=== PATIENT | female | born 1980 | race Caucasian/White ===

== ENCOUNTER → 2017-05-29 | Outpatient (CLI) | payer BC ==
--- NOTE | 2017-05-29 14:15 | RADIOLOGY REPORT (SQ) ---
EXAM DESCRIPTION: HIP RIGHT AP/LATERAL COMPLETED DATE/TIME: 05/29/2017 1:51 pm REASON FOR STUDY: RIGHT HIP PAIN M25.551 PAIN IN RIGHT HIP COMPARISON: None. NUMBER OF VIEWS: Two views. TECHNIQUE: AP pelvis and additional frog-leg view of the right hip. LIMITATIONS: None. FINDINGS: MINERALIZATION: Normal. RIGHT HIP: No fracture or dislocation. No joint space narrowing. Very mild right acetabular rim bon y spurring. LEFT HIP: No fracture or dislocation. No joint space narrowing or acetabular bony spurring. PUBIS AND ISCHIUM: No fracture. PELVIS: No fracture. SACRUM: No fracture or dislocation. No worrisome bone lesions. LOWER LUMBAR SPINE: No fracture or dislocation. No worrisome bone lesions. No significant disc disea se. SOFT TISSUES: No findings. OTHER: No other significant finding. IMPRESSION: No acute fracture. Very mild acetabular rim bony spurring TECHNICAL DOCUMENTATION: JOB ID: [id number] [employer]- All Rights Reserved
== END ==
LOC: OD 13:31
PROVIDERS: ATTEND Nurse Practitioner Acute Care
DX: M25.551 Pain in right hip (principal)

== ENCOUNTER 2018-04-07 19:02 | Emergency (ER) | payer BC ==
--- NOTE | 2018-04-07 19:29 | ER Document Report ---
ED Medical Screen (RME) - General Chief Complaint: Bruising and toenails falling off Stated Complaint: BRUISING Time Seen by Provider: 04/07/18 19:20 Mode of Arrival: Ambulatory Information source: Patient TRAVEL OUTSIDE OF THE [place] IN LAST 30 DAYS: No - HPI Patient complains to provider of: Bruising Onset: Other - This is a woman with a complex past medical history which is difficult to ascertain despite an extended period of time while listening to the patient, she is [place] undiagnosed autoimmune disease for which she has been evaluated as of times by multiple neurologists without any obvious cause being identified her major concern is that she is noted to have more easy bruising over the last several days. Her toenails, both baby toe nails, fell off also this week 1 of which was caught on a bedpost. Denies any other obvious bleeding, abdominal pain constipation diarrhea or dysuria. - Related Data Allergies/Adverse Reactions: No Known Allergies Allergy (Verified 11/08/13 16:20) Past Medical History Neurological Medical History: Reports: Hx Migraine Past Surgical History: Reports: Hx Section, Hx Tubal Ligation - Immunizations Hx Diphtheria, Pertussis, Tetanus Vaccination: No Physical Exam - Vital signs Vitals: Temp Pulse Resp BP Pulse Ox 98.2 F 122 H 16 124/86 H 99 04/07/18 19:09 04/07/18 19:09 04/07/18 19:09 04/07/18 19:09 04/07/18 19:09 Course - Re-evaluation Re-evalutation: 04/07/18 20:09 This 30-year-old female presents for concern of easy bruising. Because of the concern of easy bruising with scattered ecchymosis around will check coags as well as a CBC for platelet count. Do not believe the patient has any other obvious cause identified likely is been bumping herself incidentally or intentionally. Will defer further disposition determination and testing no secondary provider. - Vital Signs Vital signs: Temp Pulse Resp BP Pulse Ox 98.2 F 122 H 16 124/86 H 99 04/07/18 19:09 04/07/18 19:09 04/07/18 19:09 04/07/18 19:09 04/07/18 19:09 - Laboratory Result Diagrams: 04/07/18 14:36 04/07/18 14:36 Laboratory results interpreted by me: 04/07/18 14:36 Glucose 114 H Doctor's Discharge - Discharge Referrals: LUCIUS PADILLA PA-C [Primary Care Provider] - Follow up as needed
[2018-04-07 19:51] LABS: INTERNATIONAL RATION (INR) 0.91; PROTHROMBIN TIME 12.7 SEC (11.4-15.4)
--- NOTE | 2018-04-07 19:51 | ER Document Report ---
ED General - General Chief Complaint: Bruising and toenails falling off Stated Complaint: BRUISING Time Seen by Provider: 04/07/18 19:20 Notes: Patient is a 38-year-old female that comes emergency department for chief complaint of developing random bruises over her body which are nontraumatic, dry mouth, and also suddenly losing toenails on her fifth digits on both feet randomly without trauma. She denies fever or chills, shortness of breath, lightheadedness, or any other complaints at this time. She states she was told she might have an autoimmune disease because of previous abnormal labs, was sent to a electric engine mechanic but she states that they cleared her without doing any blood work. She has a history of neuropathy and is on gabapentin, migraines. She denies any surgeries. She denies any new medications. TRAVEL OUTSIDE OF THE [place] IN LAST 30 DAYS: No - Related Data Allergies/Adverse Reactions: No Known Allergies Allergy (Verified 11/08/13 16:20) Past Medical History - General Information source: Patient - Social History Smoking Status: Current Some Day Smoker Chew tobacco use (# tins/day): No Frequency of alcohol use: Occasional Drug Abuse: None Lives with: Family Family History: Reviewed & Not Pertinent Patient has suicidal ideation: No Patient has homicidal ideation: No Pulmonary Medical History: Reports: Hx Asthma - allery shuts down breathing Neurological Medical History: Reports: Hx Migraine Renal/ Medical History: Denies: Hx Peritoneal Dialysis Past Surgical History: Reports: Hx Breast Surgery - breast augmentation, Hx Section, Hx Tubal Ligation - Immunizations Hx Diphtheria, Pertussis, Tetanus Vaccination: Yes Review of Systems - Review of Systems Constitutional: No symptoms reported EENT: No symptoms reported Cardiovascular: No symptoms reported Respiratory: No symptoms reported Gastrointestinal: No symptoms reported Genitourinary: No symptoms reported Female Genitourinary: No symptoms reported Musculoskeletal: See HPI Skin: See HPI Hematologic/Lymphatic: No symptoms reported Neurological/Psychological: No symptoms reported Physical Exam - Vital signs Vitals: Temp Pulse Resp BP Pulse Ox 98.2 F 122 H 16 124/86 H 99 04/07/18 19:09 04/07/18 19:09 04/07/18 19:09 04/07/18 19:09 04/07/18 19:09 - Notes Notes: GENERAL: Alert, interacts well. No acute distress. HEAD: Normocephalic, atraumatic. EYES: Pupils equal, round, and reactive to light. Extraocular movements intact. ENT: Oral mucosa unremarkable, tongue midline. Normal oropharyngeal exam. NECK: Full range of motion. Supple. Trachea midline. LUNGS: Clear to auscultation bilaterally, no wheezes, rales, or rhonchi. No respiratory distress. HEART: Borderline tachycardia, normal rhythm, no murmur. ABDOMEN: Soft, non-tender. Non-distended. Bowel sounds present in all 4 quadrants. EXTREMITIES: Moves all 4 extremities spontaneously. No edema, normal radial and dorsalis pedis pulses bilaterally. No cyanosis. Toenails missing completely but with retained normal nail bed on both of the fifth digits of the feet. Unremarkable foot exam otherwise. BACK: no cervical, thoracic, lumbar midline tenderness. No saddle anesthesia, normal distal neurovascular exam. NEUROLOGICAL: Alert and oriented x3. Normal speech. [cranial nerves II through XII grossly intact]. PSYCH: Normal affect, normal mood. SKIN: Warm, dry, normal turgor. There is a large area of ecchymosis greater than 5 cm over the right mid lateral thigh, scattered bruises over both arms and both legs otherwise. Unremarkable skin examination otherwise. Course - Re-evaluation Re-evalutation: Patient is well-appearing except for being anxious on exam. She does have, she does have 2 missing toenails over the left and right fifth digits although this appears to be from her shoes, she does admit these are new shoes and she has a new standing job. CBC unremarkable with no anemia and normal platelet count. PT, PTT unremarkable , chemistry unremarkable including liver functioning tests. Patient with no bleeding complaints only present complaints, no complaints of any symptoms at this time. Reevaluated patient. No significant change except she is now calm and relaxed. Her tachycardia has resolved. I suspect this was secondary to anxiety. No shortness of breath or chest pain complaint suggesting emergent etiology causing tachycardia. Provided patient with a copy of her labs, discussed these in detail. Because these are normal, at this time patient will follow up with her primary provider with these labs for additional monitoring. Patient states that she has a variety of bizarre symptoms and has had abnormal labs multiple times with a strong family history of autoimmune disorder, she states she wants referral to rheumatology or advice on getting autoimmune panel, advised her start with her primary care to get this panel and if not they can refer her to rheumatology, she states agreement with this plan. Discussed return precautions. Patient states satisfaction and agreement. - Vital Signs Vital signs: Temp Pulse Resp BP Pulse Ox 98 F 72 18 111/69 98 04/07/18 21:33 04/07/18 21:33 04/07/18 21:33 04/07/18 21:33 04/07/18 21:33 - Laboratory Result Diagrams: 04/07/18 19:36 04/07/18 19:36 Laboratory results interpreted by me: 04/07/18 19:36 Glucose 114 H Discharge - Discharge Clinical Impression: Abnormal bruising Toenail avulsion Qualifiers: Encounter type: initial encounter Qualified Code(s): S91.209A - Unspecified open wound of unspecified toe(s) with damage to nail, initial encounter Condition: Stable Disposition: HOME, SELF-CARE Additional Instructions: Your abnormal bruising does not have an obvious source. Your blood workup including platelet, bleeding time, coagulation factors, and liver functioning is normal. Because of your ongoing variety of symptoms I do recommend that you follow-up with primary care and have a full autoimmune panel performed along with potential referral to rheumatology. Your examination of your toenails suggests your shoes are the cause of your toenails falling off. I recommend adjusting shoes. Return for any concerning symptoms including passing out, fevers, or any other concerning or worsening symptoms. Referrals: LUCIUS PADILLA PA-C [NO LOCAL MD] - Follow up as needed
[2018-04-07 19:52] LABS: ABSOLUTE BASOPHILS # (AUTO) 0.1 10^3/uL (0.0-0.2); ABSOLUTE EOSINOPHILS # (AUTO) 0.2 10^3/uL (0.0-0.6); ABSOLUTE MONOCYTES (AUTO) 0.9 10^3/uL (0.1-1.4); ABSOLUTE NEUT (AUTO) 3.1 10^3/uL (1.7-8.2); BASOPHILS % (AUTO) 1.2 % (0-2); EOSINOPHILS % (AUTO) 3.4 % (0-6); HEMOGLOBIN 15.1 g/dL (12.0-15.5); LYMPHOCYTES % (AUTO) 40.5 % (13-45); MEAN CORPUSCULAR HGB CONC 34.2 g/dL (32.0-36.0); MEAN CORPUSCULAR VOLUME 91 fl (80-97); MONOCYTES % (AUTO) 12.2 % (3-13); PARTIAL THROMBOPLASTIN TIME 30.9 SEC (23.5-35.8); PLATELET COUNT 281 10^3/uL (150-450); RED BLOOD COUNT 4.85 10^6/uL (3.72-5.28); SEGMENTED NEUTROPHILS % (AUTO) 42.7 % (42-78); TOTAL CELLS COUNTED % (AUTO) 100 %; WHITE BLOOD COUNT 7.3 10^3/uL (4.0-10.5)
[2018-04-07 20:03] LABS: ANION GAP 11 (5-19); BLOOD UREA NITROGEN 15 mg/dL (7-20); CALCIUM 9.9 mg/dL (8.4-10.2); CARBON DIOXIDE 27 mmol/L (22-30); CHLORIDE 105 mmol/L (98-107); GLUCOSE 114 mg/dL (75-110); POTASSIUM 3.9 mmol/L (3.6-5.0)
[2018-04-07 20:34] LABS: ALANINE AMINOTRANSFERASE 30 U/L (9-52); ALBUMIN 4.4 g/dL (3.5-5.0); ALKALINE PHOSPHATASE 65 U/L (38-126); ASPARTATE AMINO TRANSFERASE 23 U/L (14-36); BILIRUBIN,DIRECT 0.3 mg/dL (0.0-0.4); BILIRUBIN,TOTAL 0.3 mg/dL (0.2-1.3); TOTAL PROTEIN 7.6 g/dL (6.3-8.2)
[2018-04-07 21:34] VITALS: BP 111/69
== END 2018-04-07 21:34 | disposition home or self-care (01) ==
LOC: ER 19:02
DX: R58 Hemorrhage, not elsewhere classified (principal); S91.205A Unspecified open wound of left lesser toe(s) with damage to nail, initial encounter; S91.204A Unspecified open wound of right lesser toe(s) with damage to nail, initial encounter; X58.XXXA Exposure to other specified factors, initial encounter; R68.2 Dry mouth, unspecified; F41.9 Anxiety disorder, unspecified; F17.200 Nicotine dependence, unspecified, uncomplicated; G62.9 Polyneuropathy, unspecified; Z79.899 Other long term (current) drug therapy; Z84.89 Family history of other specified conditions
CPT/HCPCS: 36415; 80048; 80076; 85025; 85610; 85730; 99283

== ENCOUNTER → 2018-05-10 | Outpatient (CLI) | payer BC | LOC: OD 14:35 | PROVIDERS: ATTEND Physician Assistant | DX: M13.0 Polyarthritis, unspecified (principal) | CPT/HCPCS: 36415; 85652; 86038; 86430 ==

== ENCOUNTER 2020-08-26 18:42 | Emergency (ER) | payer BC ==
[2020-08-26] MEDS ORDERED: PREDNISONE 20 MG TABLET PO ONE (20:52)
[2020-08-26] MEDS ORDERED: OXYCODONE HCL IR 5 MG TABLET PO ONE (20:53)
[2020-08-26] MEDS ORDERED: DIAZEPAM 5 MG TABLET PO ONE (20:54)
--- NOTE | 2020-08-26 20:59 | ER Document Report ---
ED Medical Screen (RME) - General Chief Complaint: Back Pain Stated Complaint: BACK PAIN Primary Care Provider: RAINER NEWMAN PA [Primary Care Provider] - Follow up as needed TRAVEL OUTSIDE OF THE [place] IN LAST 30 DAYS: No - HPI Notes: 08/26/20 20:54 Rapid Medical Exam HPI: Patient is a 40-year-old female complaining of low back pain since earlier today. Patient says she tweaked her back bending over this morning and then bent down again to get something and had severe low back pain. Pain associated difficulty standing back up because of the pain. Pain has intermittently radiated down her both legs but none at this time. Patient says she is unable to sit because those movements cause severe pain. She denies history of back surgeries, IV drug use, fevers, incontinence, saddle anesthesia, lower extremity weakness or numbness. Patient says she did take her home muscle relaxers opiate pain medications and gabapentin without relief. Patient does not know her exact diagnosis with his medications she says that when she is hooked up to an EM G that her what nerves just light up" and causes muscle spasms in her neck and throughout her body. Patient is ambulatory in the ED. Physical Exam: GENERAL: Well-appearing, well-nourished and in no acute distress. HEAD: Atraumatic, normocephalic. ENT: Moist mucous membranes. RESP: Respirations even and unlabored CV- Regular rate. NEURO: No focal neurological deficits. Moves all extremities spontaneously and on command. My involvement in this patients care was limited to a rapid initial assessment. A comprehensive ED assessment and evaluation of the patient, analysis of test results, treatment, and completion of the medical decision making process will be performed by other ER providers. - Related Data Allergies/Adverse Reactions: No Known Allergies Allergy (Verified 11/08/13 16:20) Past Medical History - Social History Chew tobacco use (# tins/day): No Frequency of alcohol use: None Drug Abuse: None Pulmonary Medical History: Reports: Hx Asthma - allery shuts down breathing Neurological Medical History: Reports: Hx Migraine Renal/ Medical History: Denies: Hx Peritoneal Dialysis Past Surgical History: Reports: Hx Breast Surgery - breast augmentation, Hx Section, Hx Tubal Ligation - Immunizations Hx Diphtheria, Pertussis, Tetanus Vaccination: Yes Physical Exam - Vital signs Vitals: Temp Pulse Resp BP Pulse Ox 98.3 F 102 H 16 132/84 H 99 08/26/20 18:46 08/26/20 18:46 08/26/20 18:46 08/26/20 18:46 08/26/20 18:46 Course - Vital Signs Vital signs: Temp Pulse Resp BP Pulse Ox 98.3 F 102 H 16 132/84 H 99 08/26/20 18:46 08/26/20 18:46 08/26/20 18:46 08/26/20 18:46 08/26/20 18:46 Doctor's Discharge - Discharge Referrals: RAINER NEWMAN PA [Primary Care Provider] - Follow up as needed
--- NOTE | 2020-08-26 22:07 | RADIOLOGY REPORT (SQ) ---
EXAM DESCRIPTION: XR LUMBAR SPINE ANTEROPOSTERIOR, LATERAL, AND OBLIQUES 5 views COMPLETED DATE/TME: 08/26/2020 21:28 CLINICAL HISTORY: 40 years, Female, fall, severe low back pain COMPARISON: None. NUMBER OF VIEWS: TECHNIQUE: LIMITATIONS: None. FINDINGS: No fracture or dislocation. Vertebral bodies and disc spaces are normal in height. Mineralization of bone appears normal. IMPRESSION: No fracture or dislocation. copyright 2010 [employer]- All Rights Reserved
--- NOTE | 2020-08-27 00:35 | ER Document Report ---
ED General - General Chief Complaint: Back Pain Stated Complaint: BACK PAIN Primary Care Provider: RAINER NEWMAN PA [Primary Care Provider] - Follow up as needed TRAVEL OUTSIDE OF THE [place] IN LAST 30 DAYS: No - HPI Notes: Chief Complaint: Historian: History obtained from patient HPI: This is a Patient is a 40-year-old female complaining of low back pain since earlier today. Patient says she tweaked her back bending over this morning and then bent down again to get something and had severe low back pain. Pain associated difficulty standing back up because of the pain. Pain has intermittently radiated down her both legs but none at this time. Patient says she is unable to sit because those movements cause severe pain. She denies history of back surgeries, IV drug use, fevers, incontinence, saddle anesthesia, lower extremity weakness or numbness. Patient says she did take her home muscle relaxers opiate pain medications and gabapentin without relief. Patient does not know her exact diagnosis with his medications she says that when she is hooked up to an EM G that her what nerves just light up" and causes muscle spasms in her neck and throughout her body. Patient is ambulatory in the ED. ROS: Constitutional: no fevers. HEENT: no MCGHEE, sore throat, or vision changes. CV: no chest pain or palpitations. Resp: no cough or SOB. GI: no abdominal pain, or n/v/d. : no dysuria, hematuria, or incont. MSK: Bilateral low back pain and SI joint pain Skin: no rashes or itching. Neuro: no seizures, weakness, numbness, or confusion. Hematological: no ecchymosis or easy bleeding. Endocrine: no polyuria/polydipsia, no heat/cold intolerance. Psych: no SI/HI, AH/VH or memory loss. PMHx: Reviewed and agree as charted by RN. PSHx: Reviewed and agree as charted by RN. SOCHx: Reviewed and agree as charted by RN. FHX: No significant familial comorbid conditions directly related to patient complaint Current Medications: Reviewed and agree with the patient medications as charted by the RN. Allergies: Reviewed and agree with the listed allergies as charted by the RN Physical Exam: Vitals: Reviewed in chart as documented by RN. General: Alert and in NAD. Head: Normocephalic; atraumatic Eyes: PERRLA, Conjunctivae clear sclerae non-icteric bilat ENT: no soft palate swelling or uvular deviation Neck: trachea midline, no unilateral swelling/tenderness/lymphadenopathy CV: RRR, no M/R/G; symmetric distal pulses Resp: respirations even and unlabored, CTA bilat. GI: abd soft and nondistended. NTTP. normal BS. no masses/HSM. no CVAT bilat MSK: Bilateral lumbar paraspinous tenderness bilateral SI joint tenderness without deformity. No midline swelling/tenderness, deformity of lumbar spine. Limited range of motion lumbar spine. Patient is able to do rotary movements of the lumbar spine but unable to flex or extend due to severe pain. Straight leg raise negative bilateral. Sensation intact to saddle area and to lower extremities distally. Strength 5 out of 5 and equal to bilateral lower extremities. Pedal pulses 2+ and equal bilaterally DTRs 2+ to BLE. Skin: warm, moist, good turgor. no rash/lesions Neuro: Alert and oriented X 4. following CN 2-12 intact. no unilateral weakness/numbness Psych: No SI/HI or AH/VH. Medical Decision-Making: Presentation of a well appearing patient complaining of acute on chronic back pain. No rapid progression of symptoms, systemic symptoms including fevers, chills, weight loss, history of recent bacterial infection, bilateral symptoms, numbness, weakness, difficulty walking, urinary retention or bowel incontinence, personal history of cancer, immunosuppression, diabetes, known AAA, or history of IV drug use. Exam is without point tenderness over vertebral bodies, pulsatile abdominal mass, and patient has symmetric and intact lower extremity strength, sensation, and reflexes without clonus. 2+ symmetric medial malleolar and dorsalis pedis pulses Based on history and physical, I have a very low suspicion of a concerning etiology of pain including epidural compression syndrome, spinal infection, transverse myelitis, malignancy, abdominal aortic aneurysm, renal colic, acute lower extremity claudication, neurogenic claudication, ankylosing spondylitis, or other intra-abdominal process. Due to absence of concerning risk factors in history and physical as well as absence of rapidly progressive, severe, or bilateral symptoms, will defer imaging at this point. I suspect this is a lumbar strain versus sacroiliitis. Patient was medicated in the ED with Valium, oxycodone, prednisone. She is a pain management patient and is on chronic [place], Skelaxin, gabapentin etc. No narcotics prescriptions will be given due to this. She is feeling better since receiving the medications. She remains amatory neurologically intact. Will discharge home. She is going to call and follow-up with her pain management doctor soon as possible. Turn factors were discussed. - Related Data Allergies/Adverse Reactions: No Known Allergies Allergy (Verified 11/08/13 16:20) Past Medical History - Social History Smoking Status: Never Smoker Chew tobacco use (# tins/day): No Frequency of alcohol use: None Drug Abuse: None Family History: Reviewed & Not Pertinent Pulmonary Medical History: Reports: Hx Asthma - allery shuts down breathing Neurological Medical History: Reports: Hx Migraine Renal/ Medical History: Denies: Hx Peritoneal Dialysis Past Surgical History: Reports: Hx Breast Surgery - breast augmentation, Hx Section, Hx Tubal Ligation - Immunizations Hx Diphtheria, Pertussis, Tetanus Vaccination: Yes Physical Exam - Vital signs Vitals: Temp Pulse Resp BP Pulse Ox 98.3 F 102 H 16 132/84 H 99 08/26/20 18:46 08/26/20 18:46 08/26/20 18:46 08/26/20 18:46 08/26/20 18:46 Course - Vital Signs Vital signs: Temp Pulse Resp BP Pulse Ox 98.4 F 95 20 143/80 H 94 08/26/20 23:14 08/26/20 23:14 08/26/20 23:14 08/26/20 23:14 08/26/20 23:14 - Laboratory Results Critical Laboratory Results Reviewed: No Critical Results - Radiology Results Critical Radiology Results Reviewed: No Critical Results Discharge - Discharge Clinical Impression: Low back pain Qualifiers: Chronicity: acute Back pain laterality: bilateral Sciatica presence: unspecified whether sciatica present Qualified Code(s): M54.5 - Low back pain Condition: Stable Disposition: HOME, SELF-CARE Instructions: Low Back Pain ([facility]) Additional Instructions: Continue your home pain medicines. Call your pain management doctor and schedule follow-up for soon as possible. Follow all printed instructions. . Follow up with your doctor in 2-3 days for re-check. Return to the ER if your condition worsens. Referrals: RAINER NEWMAN PA [Primary Care Provider] - Follow up as needed
[2020-08-27 00:55] VITALS: BP 151/66
== END 2020-08-27 00:54 | disposition home or self-care (01) ==
LOC: ER 18:42
DX: M54.5 Low back pain (principal); M62.838 Other muscle spasm; Z79.899 Other long term (current) drug therapy; Z79.891 Long term (current) use of opiate analgesic; J45.909 Unspecified asthma, uncomplicated
CPT/HCPCS: 99283; 72110; J7512